=== PATIENT | female | born 1945 | race Caucasian/White ===

== ENCOUNTER 2018-12-24 20:42 | Emergency (ER) | payer MEDICARE, BC ==
[2018-12-24] MEDS ORDERED: Cephalexin 250 MG Cap ONE (21:40)
--- NOTE | 2018-12-24 21:56 | EDM.PDOC ---
ED HPI GENERAL MEDICAL PROBLEM - General Chief Complaint: General Stated Complaint: Infected left Thumb Time Seen by Provider: 12/24/18 20:45 Source of Information: Reports: Patient History Limitations: Reports: No Limitations - History of Present Illness INITIAL COMMENTS - FREE TEXT/NARRATIVE: According to patient she claims she cut her right thumb about 1 wk ago with kitchen knife. She has been keeping the area clean. But the area has been gradually getting painful and red. Over the past 2 days the tip of the thumb has started to swell up and get painful. Patient claims the swelling got soft at the tip and the skin broke open and there was some white pus like drainage today. No difficulty with movement of the thumb. no fever or chills. 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 Onset Date: 12/17/18 Duration: Week(s): (1) Location: Reports: Upper Extremity, Right Quality: Reports: Ache Severity: Mild Improves with: Reports: None Worsens with: Reports: None Associated Symptoms: Denies: Confusion, Chest Pain, Cough, Diaphoresis, Fever/ Chills, Headaches, Nausea/Vomiting, Rash, Shortness of Breath, Syncope, Weakness Treatments BAG ADJUSTER: Reports: Acetaminophen Left Finger-Thumb Pain Score (Numeric/FACES): 7 - Related Data Allergies Allergy/AdvReac Type Severity Reaction Status Date / Time MARGOT Inhibitors Allergy Other Verified 12/24/18 21:08 amoxicillin Allergy Other Verified 12/24/18 21:08 azathioprine [From Imuran] Allergy Other Verified 12/24/18 21:08 Penicillins Allergy Hives Verified 12/24/18 21:13 phenytoin [From Dilantin] Allergy Other Verified 12/24/18 21:08 Home Meds: Home Meds Aspirin 81 mg PO DAILY 12/24/18 [History] Losartan [Cozaar] 100 mg PO DAILY 12/24/18 [History] Methotrexate 15 mg PO Q7D 12/24/18 [History] predniSONE [Prednisone] 5 mg PO DAILY 12/24/18 [History] ED ROS GENERAL - Review of Systems Review Of Systems: See Below Constitutional: Denies: Fever, Chills, Malaise, Weakness HEENT: Denies: Rhinitis, Throat Pain Respiratory: Denies: Shortness of Breath, Cough, Sputum Cardiovascular: Denies: Chest Pain, Lightheadedness Endocrine: Denies: Fatigue GI/Abdominal: Denies: Abdominal Pain, Nausea, Vomiting : Denies: Dysuria, Frequency Musculoskeletal: Denies: Joint Pain, Joint Swelling Skin: Denies: Bruising, Pruritis, Rash ED EXAM, GENERAL - Physical Exam Exam: See Below Exam Limited By: No Limitations General Appearance: Alert, WD/WN, No Apparent Distress Eye Exam: Bilateral Eye: EOMI, PERRL Ears: Normal External Exam Ear Exam: Bilateral Ear: Auricle Normal, Canal Normal, TM normal Nose: Normal Inspection, Normal Mucosa, No Blood Throat/Mouth: Normal Inspection, Normal Lips, Normal Teeth, Normal Gums, Normal Oropharynx, Normal Voice, No Airway Compromise Head: Atraumatic, Normocephalic Neck: Normal Inspection, Supple, Non-Tender, Full Range of Motion Respiratory/Chest: No Respiratory Distress, Lungs Clear, Normal Breath Sounds, No Accessory Muscle Use, Chest Non-Tender Cardiovascular: Normal Peripheral Pulses, Regular Rate, Rhythm, No Edema, No Gallop, No JVD, No Murmur, No Rub Skin Exam: Warm, Other (Right thumb: ther is a very light pink swellign over the radail aspect of the thumb about 1cm by 1.5 cm. the swelling appears to be in the skin palce . The center of the swelling has a 2mm skin breakdown and scab. The swelling is very tender. No tenderness over the PIP or MCP joints. She does have good ROM of the PIP and MCP joints.) Course - Vital Signs Text/Narrative:: Pt does have localized skin infection over the thumb, there is no active drainage noted. There is cystic swelling in the skin plane of the right thumb and is erythematous. There is no tendon involvement.Considering that patient is on methotrexate and prednisone , I have empirically covered patient with Keflex 500mg 4 times daily. Simple antibiotic ointment dressing done. Advised to keep the area clean and dry. Avoid soaking the thumb and dishwashing. Followup with her primary care provider next week for recheck. Last Recorded V/S: Last Vital Signs Temp 98.3 F 12/24/18 21:14 Pulse 101 H 12/24/18 21:14 Resp 20 12/24/18 21:14 BP 147/92 H 12/24/18 21:14 Pulse Ox 96 12/24/18 21:14 Departure - Departure Time of Disposition: 21:30 Disposition: Home, Self-Care 01 Condition: Fair Clinical Impression: Infection of thumb - Discharge Information *PRESCRIPTION DRUG MONITORING PROGRAM REVIEWED*: Not Applicable *COPY OF PRESCRIPTION DRUG MONITORING REPORT IN PATIENT FRANDY: Not Applicable Instructions: Wound Care, Adult Referrals: PCP,None [Primary Care Provider] - Forms: ED Department Discharge Additional Instructions: Keep wound clean and dry, keep bandage on with antibiotic ointment. No dish washing. Keflex 500mg every 6 hours. Follow up with primary provider. Return or call the ER if you have any questions or concerns. - Problem List & Annotations (1) Infection of thumb SNOMED Code(s): 990111440 Code(s): L08.9 - LOCAL INFECTION OF THE SKIN AND SUBCUTANEOUS TISSUE, UNSP Status: Acute Current Visit: Yes - Problem List Review Problem List Initiated/Reviewed/Updated: Yes - Assessment/Plan Assessment:: right thumb skin infection Plan: Pt does have localized skin infection over the thumb, there is no active drainage noted. There is cystic swelling in the skin plane of the right thumb and is erythematous. There is no tendon involvement.Considering that patient is on methotrexate and prednisone , I have empirically covered patient with Keflex 500mg 4 times daily. Simple antibiotic ointment dressing done. Advised to keep the area clean and dry. Avoid soaking the thumb and dishwashing. Followup with her primary care provider next week for recheck.
== END 2018-12-24 21:45 | disposition home or self-care (01) ==
LOC: LB.ED 20:42
DX: L08.9 Local infection of the skin and subcutaneous tissue, unspecified (principal); Z88.1 Allergy status to other antibiotic agents; Z88.0 Allergy status to penicillin; Z88.8 Allergy status to other drugs, medicaments and biological substances; Z79.82 Long term (current) use of aspirin; Z79.899 Other long term (current) drug therapy
CPT/HCPCS: 99283; A9270